=== PATIENT | male | born 1945 | race Caucasian/White ===

== ENCOUNTER 2016-08-10 12:29 | Emergency (ER) | payer MEDICARE ==
[~2016-08-10] VITALS: Ht 177.8 cm; Wt 82.0 kg
[2016-08-10 14:42] VITALS: BP 148/86
== END 2016-08-10 15:04 | disposition home or self-care (01) ==
LOC: ED 15:02
DX: N40.1 Benign prostatic hyperplasia with lower urinary tract symptoms (principal); R33.8 Other retention of urine; E11.9 Type 2 diabetes mellitus without complications; I10 Essential (primary) hypertension
CPT/HCPCS: 51702; 81001

== ENCOUNTER 2018-09-30 11:02 | Inpatient (IN) | payer MEDICARE ==
[~2018-09-30] VITALS: Ht 177.8 cm; Wt 68.8 kg
[2018-09-30 12:03] LABS: BASOPHILS # (AUTO) 0.03 x10^3/uL (0-0.1); BASOPHILS % (AUTO) 0 % (0-1); EOSINOPHILS # (AUTO) 0.16 x10^3/uL (0-0.4); EOSINOPHILS % (AUTO) 2 % (1-7); LYMPHOCYTES # (AUTO) 1.43 x10^3/uL (1-3.4); LYMPHOCYTES % (AUTO) 14 % (22-44); MD NO; MEAN CORPUSCULAR HEMOGLOBIN 30.7 pg (27.5-34.5); MEAN PLATELET VOLUME 7.8 fL (7.4-10.4); MONOCYTES # (AUTO) 0.66 x10^3/uL (0.2-0.8); MONOCYTES % (AUTO) 6 % (2-9); NEUTROPHILS # (AUTO) 8.08 x10^3/uL (1.8-6.8); NEUTROPHILS % (AUTO) 78 % (42-75); PLATELET COUNT 198 x10^3/uL (130-400); RED BLOOD COUNT 4.54 x10^6/uL (4.38-5.82); RED CELL DISTRIBUTION WIDTH 14.3 % (9.4-14.8)
[2018-09-30 12:17] LABS: CHLORIDE 111 mmol/L (98-107)
[2018-09-30 12:29] LABS: ALBUMIN 3.9 g/dL (3.4-5.0); ANION GAP 7 mmol/L (5-15); CREATININE 1.29 mg/dL (0.7-1.3)
[2018-09-30 12:35] LABS: MICROSCOPIC INDICATED
[2018-09-30 12:44] LABS: CULTURE INDICATED? YES
[2018-09-30] MEDS ORDERED: CEFTRIAXONE PMX 1GM/50ML 50 ML ONE (12:51)
[2018-09-30] MEDS ORDERED: CEFTRIAXONE PMX 1GM/50ML 50 ML IVPB ONE (13:00)
--- NOTE | 2018-09-30 13:07 | NUR ---
pt to be admit re gu infection
[2018-09-30] MEDS ORDERED: METF500T17 PO (13:54)
[2018-09-30] MEDS ORDERED: TAMS-11 PO (13:54)
[2018-09-30] MEDS ORDERED: NAPR-856 PO (13:54)
[2018-09-30] MEDS ORDERED: OXYB5TAB PO (14:06)
[2018-09-30] MEDS ORDERED: GLYC1TAB PO (14:06)
[2018-09-30] MEDS ORDERED: SIMV20TA3 PO (14:06)
[2018-09-30] MEDS ORDERED: ASPI-496 PO (14:06)
[2018-09-30] MEDS ORDERED: BACL20TA PO (14:06)
[2018-09-30] MEDS ORDERED: AMLO-150 PO (14:06)
[2018-09-30] MEDS ORDERED: HYDR25TA11 PO (14:06)
[2018-09-30] MEDS ORDERED: SODIUM CHLORIDE FLUSH 10ML SYR IVF PRN (14:30)
[2018-09-30] MEDS ORDERED: LABETALOL 5MG/ML, 20ML IVPush PRN (15:00)
[2018-09-30] MEDS ORDERED: ACETAMINOPHEN 325 MG TABLET PO PRN (15:00)
[2018-09-30] MEDS ORDERED: ONDANSETRON ODT 4 MG PO PRN (15:00)
[2018-09-30] MEDS ORDERED: CEFTRIAXONE PMX 1GM/50ML 50 ML IV SCH (15:30)
[2018-09-30] MEDS: SODIUM CHLORIDE 0.9% 1,000 ML IV SCH (15:50)
[2018-09-30] MEDS: ENOXAPARIN 40 MG/0.4 ML SQ SCH (15:50)
[2018-09-30] MEDS: INSULIN LISPRO 100 UNITS/ML, PEN SQ-INSULIN SCH ×2 (15:50→19:48)
[2018-09-30] MEDS: OXYBUTYNIN CHLORIDE 5 MG TABLET PO SCH (19:47)
[2018-09-30] MEDS: SIMVASTATIN 20 MG TABLET PO SCH (19:47)
[2018-09-30 20:15] VITALS: BP 129/44
[2018-10-01 01:53] VITALS: BP 119/63
[2018-10-01] MEDS: SODIUM CHLORIDE 0.9% 1,000 ML IV SCH ×2 (04:33→16:48)
[2018-10-01 05:05] LABS: BASOPHILS # (AUTO) 0.03 x10^3/uL (0-0.1); BASOPHILS % (AUTO) 0 % (0-1); EOSINOPHILS % (AUTO) 4 % (1-7); LYMPHOCYTES # (AUTO) 2.06 x10^3/uL (1-3.4); LYMPHOCYTES % (AUTO) 22 % (22-44); MD NO; MEAN CORPUSCULAR HEMOGLOBIN 30.8 pg (27.5-34.5); MEAN CORPUSCULAR VOLUME 93.5 fL (81-97); MEAN PLATELET VOLUME 8.1 fL (7.4-10.4); MONOCYTES % (AUTO) 9 % (2-9); NEUTROPHILS % (AUTO) 64 % (42-75); PLATELET COUNT 179 x10^3/uL (130-400); RED BLOOD COUNT 4.27 x10^6/uL (4.38-5.82); RED CELL DISTRIBUTION WIDTH 14.3 % (9.4-14.8)
[2018-10-01 05:12] LABS: CHLORIDE 113 mmol/L (98-107)
[2018-10-01 05:20] LABS: ALANINE AMINOTRANSFERASE 16 U/L (12-78); ALBUMIN 3.4 g/dL (3.4-5.0); ALKALINE PHOSPHATASE 137 U/L (45-117); ANION GAP 5 mmol/L (5-15); BILIRUBIN,TOTAL 0.5 mg/dL (0.2-1.0); CALCIUM 8.8 mg/dL (8.5-10.1); CREATININE 1.11 mg/dL (0.7-1.3); TOTAL PROTEIN 6.5 g/dL (6.4-8.2)
[2018-10-01] MEDS: INSULIN LISPRO 100 UNITS/ML, PEN SQ-INSULIN SCH ×4 (07:00→21:00)
[2018-10-01 07:25] VITALS: BP 161/73
[2018-10-01] MEDS ORDERED: CEFTRIAXONE PMX 1GM/50ML 50 ML IV SCH (13:00)
[2018-10-01] MEDS: AMLODIPINE 5 MG TABLET PO SCH (13:01)
[2018-10-01] MEDS: ASPIRIN 325 MG TABLET EC PO SCH (13:01)
[2018-10-01] MEDS: TAMSULOSIN 0.4 MG CAP.ER.24H PO SCH (13:01)
[2018-10-01] MEDS: OXYBUTYNIN CHLORIDE 5 MG TABLET PO SCH ×2 (13:01→21:43)
--- NOTE | 2018-10-01 13:03 | NUR ---
Recommend diet of CHOP/NTL with adherence to the following strategies: Up to chair for meals Alternate liquids and solids Check for right-sided pocketing Double swallow No straws Assistance with meal tray setup [place] swallow precautions sign posted in patient's room Addendum: 10/01/18 at 1305 by Mary QUICK Amended: Links added.
[2018-10-01] MEDS: PHENAZOPYRIDINE 100 MG TABLET PO SCH ×3 (13:04→21:43)
[2018-10-01 14:00] VITALS: BP 127/52
[2018-10-01] MEDS: ENOXAPARIN 40 MG/0.4 ML SQ SCH (16:48)
[2018-10-01 19:34] VITALS: BP 165/84
[2018-10-01] MEDS: SIMVASTATIN 20 MG TABLET PO SCH (21:43)
[2018-10-02 02:10] VITALS: BP 143/84
[2018-10-02 05:10] LABS: BASOPHILS # (AUTO) 0.03 x10^3/uL (0-0.1); BASOPHILS % (AUTO) 0 % (0-1); EOSINOPHILS % (AUTO) 5 % (1-7); LYMPHOCYTES # (AUTO) 2.19 x10^3/uL (1-3.4); LYMPHOCYTES % (AUTO) 26 % (22-44); MD NO; MEAN CORPUSCULAR HEMOGLOBIN 30.4 pg (27.5-34.5); MEAN CORPUSCULAR HGB CONC 32.9 g/dL (33.2-36.2); MEAN CORPUSCULAR VOLUME 92.6 fL (81-97); MONOCYTES # (AUTO) 0.78 x10^3/uL (0.2-0.8); MONOCYTES % (AUTO) 9 % (2-9); NEUTROPHILS # (AUTO) 5.13 x10^3/uL (1.8-6.8); NEUTROPHILS % (AUTO) 60 % (42-75); PLATELET COUNT 168 x10^3/uL (130-400); RED BLOOD COUNT 4.52 x10^6/uL (4.38-5.82); RED CELL DISTRIBUTION WIDTH 14.3 % (9.4-14.8)
[2018-10-02] MEDS: SODIUM CHLORIDE 0.9% 1,000 ML IV SCH (06:08)
[2018-10-02] MEDS: INSULIN LISPRO 100 UNITS/ML, PEN SQ-INSULIN SCH (07:00)
[2018-10-02 07:15] VITALS: BP 145/84
[2018-10-02] MEDS: ASPIRIN 325 MG TABLET EC PO SCH (09:04)
[2018-10-02] MEDS: AMLODIPINE 5 MG TABLET PO SCH (09:04)
[2018-10-02] MEDS: TAMSULOSIN 0.4 MG CAP.ER.24H PO SCH (09:04)
[2018-10-02] MEDS: OXYBUTYNIN CHLORIDE 5 MG TABLET PO SCH (09:04)
[2018-10-02] MEDS: PHENAZOPYRIDINE 100 MG TABLET PO SCH (09:04)
[2018-10-02] MEDS ORDERED: PHEN-582 PO (09:23)
[2018-10-02] MEDS ORDERED: CEFD300C37 PO (09:23)
== END 2018-10-02 11:50 | disposition home or self-care (01) | DRG 690 ==
LOC: ED 13:38 → EDIP 14:08 → 3NE 15:21 → DCLOUNGE 10-02 11:30
PROVIDERS: ADMIT Internal Medicine; ATTEND Internal Medicine
DX: N30.90 Cystitis, unspecified without hematuria (principal); E11.9 Type 2 diabetes mellitus without complications; E78.5 Hyperlipidemia, unspecified; I10 Essential (primary) hypertension; B96.4 Proteus (mirabilis) (morganii) as the cause of diseases classified elsewhere; I71.4 Abdominal aortic aneurysm, without rupture; N40.0 Benign prostatic hyperplasia without lower urinary tract symptoms; Z86.73 Personal history of transient ischemic attack (TIA), and cerebral infarction without residual deficits
CPT/HCPCS: 36415; 74176; 80048; 80053; 81001; 82040; 82962; 83605; 84145; 85025; 87040; 87077; 87086; 87186; 96365; 96375; 99285; G0378; J0696; J1650; J7030

== ENCOUNTER 2018-10-08 19:12 | Inpatient (IN) | payer MEDICARE ==
[~2018-10-08] VITALS: Ht 177.8 cm; Wt 72.0 kg
[~2018-10-08 19:12] MED LIST: AMLO-150 PO; ASPI-496 PO; BACL20TA PO; CEFD300C37 PO; GLYC1TAB PO; HYDR25TA11 PO; METF500T17 PO; NAPR-856 PO; OXYB5TAB PO; PHEN-582 PO; SIMV20TA3 PO; TAMS-11 PO
--- NOTE | 2018-10-08 19:49 | NUR ---
Pt presents to ed c/o feeling weak and having multiple glf. denies head trauma/loc. Brother states he was recently seen for a uti and admitted. Out on thursday. Pt is at baseline mentation per brother. States he has been "not peeing as much as usual." Denies any further gu s/s. All monitoring applied. Vss.
--- NOTE | 2018-10-08 20:25 | NUR ---
Pt aware of need for ua. Attempting at this time. No immediate needs at this time.
--- NOTE | 2018-10-08 20:26 | NUR ---
Pt to ct.
[2018-10-08 20:28] LABS: BASOPHILS # (AUTO) 0.06 x10^3/uL (0-0.1); BASOPHILS % (AUTO) 1 % (0-1); EOSINOPHILS # (AUTO) 0.47 x10^3/uL (0-0.4); EOSINOPHILS % (AUTO) 6 % (1-7); LYMPHOCYTES # (AUTO) 2.34 x10^3/uL (1-3.4); LYMPHOCYTES % (AUTO) 28 % (22-44); MD NO; MEAN CORPUSCULAR HGB CONC 32.8 g/dL (33.2-36.2); MEAN CORPUSCULAR VOLUME 91.6 fL (81-97); MEAN PLATELET VOLUME 7.8 fL (7.4-10.4); MONOCYTES # (AUTO) 0.67 x10^3/uL (0.2-0.8); MONOCYTES % (AUTO) 8 % (2-9); NEUTROPHILS # (AUTO) 4.87 x10^3/uL (1.8-6.8); NEUTROPHILS % (AUTO) 58 % (42-75); PLATELET COUNT 194 x10^3/uL (130-400); RED BLOOD COUNT 4.24 x10^6/uL (4.38-5.82); RED CELL DISTRIBUTION WIDTH 14.5 % (9.4-14.8)
[2018-10-08 20:29] LABS: ALANINE AMINOTRANSFERASE 17 U/L (12-78); ALBUMIN 3.7 g/dL (3.4-5.0); ANION GAP 5 mmol/L (5-15); CALCIUM 8.8 mg/dL (8.5-10.1); CHLORIDE 108 mmol/L (98-107)
[2018-10-08 20:31] LABS: ALKALINE PHOSPHATASE 127 U/L (45-117); BILIRUBIN,TOTAL 0.5 mg/dL (0.2-1.0); CREATININE 1.42 mg/dL (0.7-1.3)
--- NOTE | 2018-10-08 21:04 | NUR ---
Still unable to give ua. Asking for water. okayed. Given water per request.
--- NOTE | 2018-10-08 21:54 | NUR ---
at bedside for assessment.
--- NOTE | 2018-10-08 22:26 | NUR ---
Tbadm. Awaiting adm orders.
[2018-10-08] MEDS ORDERED: SODIUM CHLORIDE FLUSH 10ML SYR IVF PRN (22:30)
[2018-10-08] MEDS: BACLOFEN 10 MG TABLET PO SCH (23:00)
[2018-10-08] MEDS ORDERED: POLYETHYLENE GLYCOL 17 GM PACKET PO PRN (23:00)
[2018-10-08] MEDS: metFORMIN 500 MG TABLET PO SCH (23:00)
[2018-10-08] MEDS ORDERED: ACETAMINOPHEN 325 MG TABLET PO PRN (23:00)
[2018-10-08] MEDS ORDERED: ONDANSETRON ODT 4 MG PO PRN (23:00)
[2018-10-08] MEDS: OXYBUTYNIN CHLORIDE 5 MG TABLET PO SCH (23:00)
[2018-10-08] MEDS: SIMVASTATIN 20 MG TABLET PO SCH (23:00)
[2018-10-08] MEDS ORDERED: BISACODYL 10 MG SUPP PR PRN (23:00)
[2018-10-08 23:30] VITALS: BP 144/79
[2018-10-09] MEDS: SODIUM CHLORIDE FLUSH 10ML SYR IVF SCH ×3 (00:11→20:30)
[2018-10-09 01:06] LABS: MICROSCOPIC AUTO
[2018-10-09 01:09] LABS: CULTURE INDICATED? YES
[2018-10-09 02:02] VITALS: BP 149/86
[2018-10-09 07:21] VITALS: BP 150/82
[2018-10-09] MEDS: ASPIRIN 325 MG TABLET EC PO SCH (07:58)
[2018-10-09] MEDS: BACLOFEN 10 MG TABLET PO SCH ×3 (07:59→20:31)
[2018-10-09] MEDS: AMLODIPINE 5 MG TABLET PO SCH (07:59)
[2018-10-09] MEDS: metFORMIN 500 MG TABLET PO SCH ×2 (07:59→20:31)
[2018-10-09] MEDS: OXYBUTYNIN CHLORIDE 5 MG TABLET PO SCH ×2 (07:59→20:30)
[2018-10-09] MEDS: TAMSULOSIN 0.4 MG CAP.ER.24H PO SCH (07:59)
[2018-10-09] MEDS: SENNA/DOCUSATE TABLET PO SCH (07:59)
[2018-10-09] MEDS: GLYCOPYRROLATE 1 MG TABLET PO SCH (07:59)
[2018-10-09] MEDS: LACTATED RINGERS 1,000 ML IV SCH (11:53)
[2018-10-09 12:49] LABS: THYROID STIMULATING HORMONE 0.718 mIU/L (0.358-3.740)
[2018-10-09 13:40] VITALS: BP 154/87
[2018-10-09] MEDS: SIMVASTATIN 20 MG TABLET PO SCH (20:31)
[2018-10-09 20:39] VITALS: BP 156/91
[2018-10-10] MEDS: LACTATED RINGERS 1,000 ML IV SCH (00:50)
[2018-10-10 01:49] VITALS: BP 151/96
[2018-10-10 05:28] LABS: BASOPHILS # (AUTO) 0.02 x10^3/uL (0-0.1); BASOPHILS % (AUTO) 0 % (0-1); EOSINOPHILS % (AUTO) 4 % (1-7); LYMPHOCYTES # (AUTO) 1.86 x10^3/uL (1-3.4); LYMPHOCYTES % (AUTO) 19 % (22-44); MD NO; MEAN CORPUSCULAR HEMOGLOBIN 29.9 pg (27.5-34.5); MEAN CORPUSCULAR HGB CONC 32.3 g/dL (33.2-36.2); MEAN CORPUSCULAR VOLUME 92.5 fL (81-97); MEAN PLATELET VOLUME 7.7 fL (7.4-10.4); MONOCYTES # (AUTO) 0.76 x10^3/uL (0.2-0.8); MONOCYTES % (AUTO) 8 % (2-9); NEUTROPHILS # (AUTO) 6.62 x10^3/uL (1.8-6.8); NEUTROPHILS % (AUTO) 69 % (42-75); PLATELET COUNT 201 x10^3/uL (130-400); RED BLOOD COUNT 4.79 x10^6/uL (4.38-5.82); RED CELL DISTRIBUTION WIDTH 14.6 % (9.4-14.8)
[2018-10-10 05:40] LABS: CHLORIDE 110 mmol/L (98-107)
[2018-10-10 05:48] LABS: ANION GAP 8 mmol/L (5-15); CALCIUM 8.9 mg/dL (8.5-10.1); CREATININE 1.25 mg/dL (0.7-1.3)
[2018-10-10 07:41] VITALS: BP 147/94
[2018-10-10] MEDS ORDERED: POTASSIUM CHLORIDE 20 MEQ TAB.ER.PRT PO ONE (08:30)
[2018-10-10] MEDS: ASPIRIN 325 MG TABLET EC PO SCH ×2 (09:00→11:52)
[2018-10-10] MEDS: SODIUM CHLORIDE FLUSH 10ML SYR IVF SCH ×2 (09:00→20:38)
[2018-10-10] MEDS: TAMSULOSIN 0.4 MG CAP.ER.24H PO SCH ×2 (09:00→11:53)
[2018-10-10] MEDS: OXYBUTYNIN CHLORIDE 5 MG TABLET PO SCH ×2 (09:00→11:53)
[2018-10-10] MEDS: SENNA/DOCUSATE TABLET PO SCH (09:00)
[2018-10-10] MEDS ORDERED: NS + 40MEQ KCL 1,000 ML IV SCH (09:00)
[2018-10-10] MEDS: BACLOFEN 10 MG TABLET PO SCH ×3 (09:00→20:37)
[2018-10-10] MEDS: metFORMIN 500 MG TABLET PO SCH ×2 (09:00→11:53)
[2018-10-10] MEDS: GLYCOPYRROLATE 1 MG TABLET PO SCH ×2 (09:00→11:53)
[2018-10-10] MEDS: AMLODIPINE 5 MG TABLET PO SCH ×2 (09:00→11:52)
--- NOTE | 2018-10-10 11:16 | NUR ---
REC NTL/GROUND; swallow precautions sheet posted at bedside Addendum: 10/10/18 at [address] Amended: Links added.
[2018-10-10 13:16] VITALS: BP 147/78
[2018-10-10 18:32] VITALS: BP 169/98
[2018-10-10] MEDS: SIMVASTATIN 20 MG TABLET PO SCH (20:37)
[2018-10-10] MEDS: SODIUM CHLORIDE 0.9% 1,000 ML IV SCH (22:24)
[2018-10-11 01:47] VITALS: BP 162/87
[2018-10-11] MEDS: SENNA/DOCUSATE TABLET PO SCH (08:14)
[2018-10-11] MEDS: BACLOFEN 10 MG TABLET PO SCH ×2 (08:15→15:40)
[2018-10-11] MEDS: OXYBUTYNIN CHLORIDE 5 MG TABLET PO SCH (08:15)
[2018-10-11] MEDS: metFORMIN 500 MG TABLET PO SCH (08:15)
[2018-10-11] MEDS: SODIUM CHLORIDE FLUSH 10ML SYR IVF SCH (08:15)
[2018-10-11 09:10] VITALS: BP 127/77
[2018-10-11] MEDS: SODIUM CHLORIDE 0.9% 1,000 ML IV SCH (11:10)
[2018-10-11 13:10] VITALS: BP 156/84
== END 2018-10-11 16:30 | DRG 683 ==
LOC: ED 19:13 → EDIP 22:08 → 4NOR 23:25
PROVIDERS: ADMIT Family Medicine; ATTEND Family Medicine
DX: N17.9 Acute kidney failure, unspecified (principal); I69.351 Hemiplegia and hemiparesis following cerebral infarction affecting right dominant side; E86.0 Dehydration; D64.9 Anemia, unspecified; E11.9 Type 2 diabetes mellitus without complications; I10 Essential (primary) hypertension; E78.5 Hyperlipidemia, unspecified; N40.0 Benign prostatic hyperplasia without lower urinary tract symptoms; R29.6 Repeated falls; Z79.84 Long term (current) use of oral hypoglycemic drugs; Z80.1 Family history of malignant neoplasm of trachea, bronchus and lung; Z87.891 Personal history of nicotine dependence
CPT/HCPCS: 36415; 70450; 80048; 80053; 81001; 82607; 84443; 85025; 87086; 93005; 99285; G0378; J3480; J7030; J7120; Q0177